=== PATIENT | female | born 1970 | race Caucasian/White ===

== ENCOUNTER 2024-01-28 12:55 | Outpatient (CLI) | payer OTHER | END 2024-01-28 12:56 | disposition home or self-care (01) | LOC: CSHCT 12:55 | PROVIDERS: ATTEND Internal Medicine | DX: Z82.49 Family history of ischemic heart disease and other diseases of the circulatory system (principal); K44.9 Diaphragmatic hernia without obstruction or gangrene | CPT/HCPCS: 75571 ==